=== PATIENT | female | born 1965 | race Caucasian/White ===

== ENCOUNTER → 2022-02-12 | Day surgery (SDC) | payer BC ==
[~2022-02-12] MED LIST: Flumazenil 0.1 MG/ML 10 ML MDV ONE; Midazolam 1 MG/ML 2 ML SDV ONE; Phenylephrine 1% 10 MG/ML SDV ONE; Propofol 200 MG/20 ML SDV ONE; fentaNYL 100 MCG/2 ML SDV ONE
[2022-02-12] MEDS: Lactated Ringers 1,000 ML IV SCH (09:58)
[2022-02-12 11:22] VITALS: BP 103/58; PULSE 50
== END ==
LOC: CC.SDS 09:34
PROVIDERS: ATTEND Family Medicine
DX: Z12.11 Encounter for screening for malignant neoplasm of colon (principal); D12.5 Benign neoplasm of sigmoid colon; F17.210 Nicotine dependence, cigarettes, uncomplicated; N95.1 Menopausal and female climacteric states; Z98.890 Other specified postprocedural states; Z80.0 Family history of malignant neoplasm of digestive organs
CPT/HCPCS: 00811; J2250; J2370; J2704; J3010; J7120

== ENCOUNTER 2023-09-05 15:57 | Emergency (ER) | payer BC ==
[2023-09-05 16:02] VITALS: BP 156/82; PULSE 71
[2023-09-05] MEDS: Diphtheria,Pertussis(Acell),Tetanus Vaccine 0.5 ML Syringe IM ONE (16:12)
== END 2023-09-05 16:18 | disposition home or self-care (01) ==
LOC: CC.ED 15:57
DX: S61.212A Laceration without foreign body of right middle finger without damage to nail, initial encounter (principal); Z23 Encounter for immunization; W27.4XXA Contact with kitchen utensil, initial encounter; Y93.G3 Activity, cooking and baking; Y92.000 Kitchen of unspecified non-institutional (private) residence as the place of occurrence of the external cause
CPT/HCPCS: 12001; 90471; 90715; 99282-25; 99283